=== PATIENT | female | born 1980 | race Caucasian/White ===

== ENCOUNTER 2019-04-04 04:42 | Emergency (ER) | payer SELFPAY ==
[2019-04-04] MEDS ORDERED: Albuterol/Ipratropium 3.0-0.5 MG/3 ML Neb Soln ONE (04:44)
[2019-04-04] MEDS ORDERED: methylPREDNISolone Sodium Succinate 125 MG/2 ML SDV ONE (04:44)
[2019-04-04] MEDS ORDERED: methylPREDNISolone Sodium Succinate 125 MG/2 ML SDV IVPUSH ONE (04:47)
[2019-04-04] MEDS ORDERED: Albuterol/Ipratropium 3.0-0.5 MG/3 ML Neb Soln NEB ONE (04:47)
--- NOTE | 2019-04-04 04:47 | EDM.PDOC ---
<CelinaLacho - Last Filed: 04/04/19 04:44> ED HPI GENERAL MEDICAL PROBLEM - General Stated Complaint: SHORTNESS OF BREATH- ASTHMA Time Seen by Provider: 04/04/19 04:44 - History of Present Illness INITIAL COMMENTS - FREE TEXT/NARRATIVE: HISTORY AND PHYSICAL: History of present illness: Patient 38-year-old white female presents with a concern of shortness of breath and wheezing worse this a.m. this is been unresponsive to her home nebulizer. Patient has long history of asthma she still is a smoker, patient denies fever chills nausea vomiting she states she has been hospitalized in the past but this was related to pneumonia she denies having been hospitalized in the past related to asthmatic exacerbation Review of systems: As per history of present illness and below otherwise all systems reviewed and negative. Past medical history: As per history of present illness and as reviewed below otherwise noncontributory. Surgical history: As per history of present illness and as reviewed below otherwise noncontributory. Social history: No reported history of drug or alcohol abuse. Family history: As per history of present illness and as reviewed below otherwise noncontributory. Physical exam: HEENT: Atraumatic, normocephalic, pupils reactive, negative for conjunctival pallor or scleral icterus, mucous membranes moist, throat clear, neck supple, nontender, trachea midline. Lungs: Diminished bilaterally and expiratory wheezing noted no rhonchi or crackles breath sounds equal bilaterally, chest nontender. Heart: S1S2, regular, negative for clicks, rubs, or JVD. Abdomen: Soft, nondistended, nontender. Pelvis: Stable nontender. Genitourinary: Deferred. Rectal: Deferred. Extremities: Atraumatic, negative for cords or calf pain. Neurovascular unremarkable. Neuro: Awake, alert, oriented. Nonfocal Diagnostics: Chest x-ray one view Therapeutics: Albuterol ipratropium nebulizer Solu-Medrol 125 mg IV Impression: #1 asthmatic exacerbation Definitive disposition and diagnosis as appropriate pending reevaluation and review of above. - Related Data Allergies Allergy/AdvReac Type Severity Reaction Status Date / Time No Known Allergies Allergy Verified 04/04/19 04:48 Home Meds: Home Meds Albuterol [Ventolin HFA] 1 puff INH ASDIRECTED PRN 04/04/19 [History] Albuterol [Ventolin HFA] 2 puff INH Q4HR PRN #1 inhaler 04/04/19 [Rx] Amoxicillin 500 mg PO TID #21 capsule 04/04/19 [Rx] predniSONE [Prednisone] 20 mg PO DAILY #5 tablet 04/04/19 [Rx] ED ROS GENERAL - Review of Systems Review Of Systems: ROS reveals no pertinent complaints other than HPI. ED EXAM, GENERAL - Physical Exam Exam: See Below (See dictation) Course - Vital Signs Last Recorded V/S: Last Vital Signs Temp 97.6 F 04/04/19 04:42 Pulse 86 04/04/19 04:42 Resp 18 04/04/19 04:42 BP 138/78 04/04/19 04:42 Pulse Ox 95 04/04/19 04:42 - Orders/Labs/Meds Orders: Active Orders 24 hr Category Date Time Status Chest 1V Frontal [CR] Stat Exams 04/04/19 04:45 Taken Sodium Chloride 0.9% [Saline Flush] Med 04/04/19 04:49 Active 10 ml FLUSH ASDIRECTED PRN Sodium Chloride 0.9% [Saline Flush] Med 04/04/19 04:49 Active 2.5 ml FLUSH ASDIRECTED PRN Saline Lock Insert [OM.PC] Stat Oth 04/04/19 04:49 Ordered Medication Orders Sodium Chloride (Saline Flush) 10 ml FLUSH ASDIRECTED PRN PRN Reason: Keep Vein Open Last Admin: 04/04/19 04:51 Dose: 10 ml Sodium Chloride (Saline Flush) 2.5 ml FLUSH ASDIRECTED PRN PRN Reason: Keep Vein Open Last Admin: 04/04/19 04:51 Dose: 2.5 ml Meds: Medications Generic Name Dose Route Start Last Admin Trade Name Freq PRN Reason Stop Dose Admin Sodium Chloride 10 ml 04/04/19 04:49 04/04/19 04:51 Saline Flush FLUSH 10 ml ASDIRECTED PRN Administration Keep Vein Open Sodium Chloride 2.5 ml 04/04/19 04:49 04/04/19 04:51 Saline Flush FLUSH 2.5 ml ASDIRECTED PRN Administration Keep Vein Open Discontinued Medications Generic Name Dose Route Start Last Admin Trade Name Freq PRN Reason Stop Dose Admin Albuterol 2.5 mg 04/04/19 05:19 04/04/19 05:23 Proventil Neb Soln NEB 04/04/19 05:20 2.5 mg ONETIME ONE Administration Albuterol/Ipratropium Confirm 04/04/19 04:44 04/04/19 04:51 Duoneb 3.0-0.5 Mg/3 Ml Administered 04/04/19 04:45 Not Given Dose 3 ml .ROUTE .STK-MED ONE Albuterol/Ipratropium 3 ml 04/04/19 04:47 04/04/19 04:50 Duoneb 3.0-0.5 Mg/3 Ml NEB 04/04/19 04:48 3 ml ONETIME ONE Administration Methylprednisolone Sodium Succinate Confirm 04/04/19 04:44 04/04/19 04:51 Solu-Medrol Administered 04/04/19 04:45 Not Given Dose 125 mg .ROUTE .STK-MED ONE Methylprednisolone Sodium Succinate 125 mg 04/04/19 04:47 04/04/19 04:51 Solu-Medrol IVPUSH 04/04/19 04:48 125 mg ONETIME ONE Administration Departure - Departure Disposition: Home, Self-Care 01 Clinical Impression: Acute asthmatic bronchitis - Discharge Information Prescriptions: Albuterol [Ventolin HFA] 2 puff INH Q4HR PRN #1 inhaler PRN Reason: Shortness Of Breath Amoxicillin 500 mg PO TID #21 capsule predniSONE [Prednisone] 20 mg PO DAILY #5 tablet Additional Instructions: The following information is given to patients seen in the emergency department who are being discharged to home. This information is to outline your options for follow-up care. We provide all patients seen in our emergency department with a follow-up referral. The need for follow-up, as well as the timing and circumstances, are variable depending upon the specifics of your emergency department visit. If you don't have a primary care physician on staff, we will provide you with a referral. We always advise you to contact your personal physician following an emergency department visit to inform them of the circumstance of the visit and for follow-up with them and/or the need for any referrals to a consulting specialist. The emergency department will also refer you to a specialist when appropriate. This referral assures that you have the opportunity for follow-up care with a specialist. All of these measure are taken in an effort to provide you with optimal care, which includes your follow-up. Under all circumstances we always encourage you to contact your private physician who remains a resource for coordinating your care. When calling for follow-up care, please make the office aware that this follow-up is from your recent emergency room visit. If for any reason you are refused follow-up, please contact the [facility] Emergency Department at and asked to speak to the emergency department charge nurse. Take meds as directed, follow up with your primary care physician, return to ER if symptoms worsen or change. [facility] [address] [place] [address] <Millicent Ellington - Last Filed: 04/04/19 05:43> Departure - Departure Time of Disposition: 05:43 Condition: Good - Discharge Information *PRESCRIPTION DRUG MONITORING PROGRAM REVIEWED*: No *COPY OF PRESCRIPTION DRUG MONITORING REPORT IN PATIENT DANIELLA: No
[2019-04-04] MEDS ORDERED: Sodium Chloride 0.9% 10 ML Syringe FLUSH PRN (04:49)
[2019-04-04] MEDS ORDERED: Sodium Chloride 0.9% 2.5 ML Syringe FLUSH PRN (04:49)
[2019-04-04] MEDS ORDERED: Albuterol 0.083% 2.5 MG/3 ML Neb Soln NEB ONE (05:19)
--- NOTE | 2019-04-04 05:53 | CR ---
Indication: Dyspnea Technique: Chest 1 view Comparison: None Findings/Impression: Cardiovascular and mediastinum: Heart size and vasculature are normal in caliber and appearance. Mediastinum is within normal limits. Lungs and pleural space: Lungs are clear. No sign of infiltrate or mass. No sign of pleural effusion. No pneumothorax. Bones and soft tissues: No significant findings. Dictated by Jose Cruz Ramirez MD @ 04/04/2019 5:52:10 AM Dictated by: Jose Cruz Ramirez MD @ 04/04/2019 05:52:14 (Electronically Signed)
== END 2019-04-04 05:57 | disposition home or self-care (01) ==
LOC: MW.ED 04:42
DX: J45.901 Unspecified asthma with (acute) exacerbation (principal); Z79.51 Long term (current) use of inhaled steroids
CPT/HCPCS: 71045; 96372; 99284; J2930; J7620-GY

== ENCOUNTER 2024-04-06 10:32 | Day surgery (SDC) | payer BC, MEDICAID ==
[~2024-04-06 10:32] MED LIST: Propofol 200 MG/20 ML SDV ONE; ceFAZolin 2 GM in Sodium Chloride 0.9% 50 ML IV ONE; fentaNYL 250 MCG/5 ML SDV ONE; propofoL 50 ML ONE
[2024-04-06] MEDS ORDERED: Phenylephrine HCl In 0.9% NaCl 1 MG/10 ML Syringe IVPUSH PRN (10:36)
[2024-04-06] MEDS ORDERED: Metoclopramide 10 MG/2 ML SDV IVPUSH PRN (10:36)
[2024-04-06] MEDS ORDERED: Ondansetron 4 MG/2 ML SDV IVPUSH PRN (10:36)
[2024-04-06] MEDS ORDERED: Morphine 2 MG/ML SYRINGE IVPUSH PRN (10:36)
[2024-04-06] MEDS ORDERED: HYDROmorphone 1 MG/ML Syringe IVPUSH PRN (10:36)
[2024-04-06] MEDS ORDERED: Naloxone 0.4 MG/ML SDV IVPUSH PRN (10:36)
[2024-04-06] MEDS ORDERED: Albuterol 0.083% 2.5 MG/3 ML Neb Soln NEB PRN (10:36)
[2024-04-06] MEDS: Lactated Ringers 1,000 ML IV SCH (11:08)
[2024-04-06] MEDS ORDERED: Ketamine HCL/NACL, ISO-OSM 50 MG/5 ML Syringe ONE (13:20)
[2024-04-06] MEDS ORDERED: Propofol 200 MG/20 ML SDV ONE (13:24)
[2024-04-06] MEDS ORDERED: Dexamethasone 4 MG/ML 5 ML MDV ONE (13:36)
[2024-04-06] MEDS ORDERED: Ondansetron 4 MG/2 ML SDV ONE (13:36)
[2024-04-06] MEDS ORDERED: Ketorolac 30 MG/ML SDV ONE (13:36)
[2024-04-06] MEDS ORDERED: ceFAZolin 2 GM Vial ONE (13:36)
[2024-04-06] MEDS ORDERED: HYDROmorphone 2 MG/ML Syringe ONE (13:38)
[2024-04-06] MEDS ORDERED: Bupivacaine 0.5% 30 ML SDV ONE (13:40)
[2024-04-06] MEDS: fentaNYL 50 MCG/ML SDV IVPUSH PRN (14:11)
== END 2024-04-06 15:00 | disposition home or self-care (01) ==
LOC: MW.SDS 10:32
PROVIDERS: ATTEND Orthopaedic Surgery
DX: S83.242A Other tear of medial meniscus, current injury, left knee, initial encounter (principal); J45.909 Unspecified asthma, uncomplicated; K21.9 Gastro-esophageal reflux disease without esophagitis; F41.8 Other specified anxiety disorders; E03.9 Hypothyroidism, unspecified; E66.9 Obesity, unspecified; F17.290 Nicotine dependence, other tobacco product, uncomplicated; Z79.899 Other long term (current) drug therapy; Z79.890 Hormone replacement therapy; Z91.09 Other allergy status, other than to drugs and biological substances; Z91.018 Allergy to other foods; Z68.30 Body mass index [BMI] 30.0-30.9, adult
CPT/HCPCS: 29881; J0131; J0665; J0690; J1100; J1170; J1885; J2405; J2704; J3010; J7120; 01400; J3490

== ENCOUNTER 2025-04-17 06:46 | Inpatient (IN) | payer BC ==
[2025-04-17] MEDS ORDERED: Sodium Chloride 0.9% 2.5 ML Syringe FLUSH PRN ×2 (07:03→09:59)
[2025-04-17] MEDS ORDERED: Sodium Chloride 0.9% 10 ML Syringe FLUSH PRN ×2 (07:03→09:59)
[2025-04-17] MEDS: methylPREDNISolone Sodium Succinate 125 MG/2 ML SDV IVPUSH ONE (07:24)
[2025-04-17 07:39] LABS: BASOPHILS ABSOLUTE AUTO 0.02 K/uL (0.00-0.20); BASOPHILS PERCENT AUTO 0.3 % (0.0-1.0); EOSINOPHILS ABSOLUTE AUTO 0.07 K/uL (0.00-0.45); EOSINOPHILS PERCENT AUTO 1.0 % (0.0-6.0); IMMATURE GRAN ABSOLUTE AUTO 0.05 K/uL (0.00-0.05); IMMATURE GRAN PERCENT AUTO 0.7 % (0.0-0.4); LYMPHOCYTES ABSOLUTE AUTO 1.23 K/uL (1.00-4.80); LYMPHOCYTES PERCENT AUTO 17.6 % (24.0-44.0); MEAN PLATELET VOLUME 9.3 fL (9.4-12.3); MONOCYTES ABSOLUTE AUTO 0.66 K/uL (0.00-0.80); MONOCYTES PERCENT AUTO 9.5 % (0.0-8.0); NEUTROPHILS ABSOLUTE AUTO 4.95 K/uL (1.80-7.70); NEUTROPHILS PERCENT AUTO 70.9 % (41.0-71.0); NRBC ABSOLUTE 0.00 K/uL (0.00-0.02); NRBC PERCENT 0.0 /100WBC (0.0-0.2); PLATELET COUNT,PLT 293 K/uL (150-400); RED BLOOD CELL COUNT 3.99 M/uL (4.10-5.30); WHITE BLOOD CELL COUNT,WBC 6.98 K/uL (3.9-11.3)
[2025-04-17] MEDS: cefTRIAXone 1 GM in Water For Injection, Sterile 10 ML IVPUSH ONE (07:53)
[2025-04-17 08:08] LABS: A/G RATIO 0.8 (0.9-1.6); ALANINE AMINOTRANSFERASE,ALT 46 IU/L (14-63); ASPARTATE AMNIOTRANSFERASE,AST 34 IU/L (15-37); BILIRUBIN TOTAL 0.4 mg/dL (0.2-1.0); BLOOD UREA NITROGEN,BUN 7 mg/dL (7.0-18.0); CARBON DIOXIDE,CO2 27.2 mmol/L (21.0-32.0); CHLORIDE,CL 103 mmol/L (98-107); CREATININE 0.8 mg/dL (0.6-1.0); GLUCOSE RANDOM 138 mg/dL (74-106); POTASSIUM,K 3.4 mmol/L (3.5-5.1); PROTEIN TOTAL,TP 6.8 g/dL (6.4-8.2); SODIUM,NA 143 mmol/L (136-145)
[2025-04-17 08:10] LABS: ESTIMATED GFR 93 mL/min (>60)
[2025-04-17 08:18] LABS: LACTIC ACID 1.2 mmol/L (0.4-2.0)
[2025-04-17] MEDS: Iopamidol 755 MG/ML 500 ML Multipack Bottle IVPUSH STA (09:09)
[2025-04-17] MEDS: Potassium Chloride 20 MEQ Tab.ER PO ONE (11:09)
[2025-04-17] MEDS: Pantoprazole 40 MG in Sodium Chloride 0.9% 10 ML IVPUSH SCH (11:09)
[2025-04-17] MEDS: Ondansetron 4 MG/2 ML SDV IVPUSH SCH (11:09)
[2025-04-17] MEDS ORDERED: Ondansetron 4 MG/2 ML SDV IVPUSH PRN (17:00)
[2025-04-17] MEDS: Desvenlafaxine Succinate 25 MG TAB.ER PO SCH (20:49)
[2025-04-18 05:58] LABS: BASOPHILS ABSOLUTE AUTO 0.05 K/uL (0.00-0.20); BASOPHILS PERCENT AUTO 0.6 % (0.0-1.0); EOSINOPHILS ABSOLUTE AUTO 0.10 K/uL (0.00-0.45); EOSINOPHILS PERCENT AUTO 1.1 % (0.0-6.0); IMMATURE GRAN ABSOLUTE AUTO 0.13 K/uL (0.00-0.05); IMMATURE GRAN PERCENT AUTO 1.5 % (0.0-0.4); LYMPHOCYTES ABSOLUTE AUTO 2.49 K/uL (1.00-4.80); LYMPHOCYTES PERCENT AUTO 28.6 % (24.0-44.0); MEAN PLATELET VOLUME 9.2 fL (9.4-12.3); MONOCYTES ABSOLUTE AUTO 0.83 K/uL (0.00-0.80); MONOCYTES PERCENT AUTO 9.5 % (0.0-8.0); NEUTROPHILS ABSOLUTE AUTO 5.10 K/uL (1.80-7.70); NEUTROPHILS PERCENT AUTO 58.7 % (41.0-71.0); NRBC ABSOLUTE 0.00 K/uL (0.00-0.02); NRBC PERCENT 0.0 /100WBC (0.0-0.2); PLATELET COUNT,PLT 305 K/uL (150-400); RED BLOOD CELL COUNT 3.95 M/uL (4.10-5.30); WHITE BLOOD CELL COUNT,WBC 8.70 K/uL (3.9-11.3)
[2025-04-18 06:16] LABS: BLOOD UREA NITROGEN,BUN 9.0 mg/dL (7.0-18.0); CARBON DIOXIDE,CO2 28.9 mmol/L (21.0-32.0); CHLORIDE,CL 104.0 mmol/L (98-107); CREATININE 0.8 mg/dL (0.6-1.0); EST CRCL DRUG DOSING (CG) 86.36 mL/min; GLUCOSE RANDOM 116.0 mg/dL (74-106); POTASSIUM,K 4.0 mmol/L (3.5-5.1); SODIUM,NA 139.0 mmol/L (136-145)
[2025-04-18 06:24] LABS: ESTIMATED GFR 93.0 mL/min (>60)
[2025-04-18] MEDS: Magnesium Sulfate 2 GM/50 mL 2 GM in Premix Bag 1 BAG IV ONE (08:39)
[2025-04-18] MEDS: cefTRIAXone 1 GM in Water For Injection, Sterile 10 ML IVPUSH SCH (09:43)
[2025-04-19 05:07] LABS: BORDETELLA PARAPERT IS1001 Not Detected (Not Detected)
[2025-04-19 05:57] LABS: BASOPHILS ABSOLUTE AUTO 0.03 K/uL (0.00-0.20); BASOPHILS PERCENT AUTO 0.4 % (0.0-1.0); EOSINOPHILS ABSOLUTE AUTO 0.12 K/uL (0.00-0.45); EOSINOPHILS PERCENT AUTO 1.6 % (0.0-6.0); IMMATURE GRAN ABSOLUTE AUTO 0.15 K/uL (0.00-0.05); IMMATURE GRAN PERCENT AUTO 2.0 % (0.0-0.4); LYMPHOCYTES ABSOLUTE AUTO 2.24 K/uL (1.00-4.80); LYMPHOCYTES PERCENT AUTO 29.3 % (24.0-44.0); MEAN PLATELET VOLUME 9.1 fL (9.4-12.3); MONOCYTES ABSOLUTE AUTO 0.61 K/uL (0.00-0.80); MONOCYTES PERCENT AUTO 8.0 % (0.0-8.0); NEUTROPHILS ABSOLUTE AUTO 4.49 K/uL (1.80-7.70); NEUTROPHILS PERCENT AUTO 58.7 % (41.0-71.0); NRBC ABSOLUTE 0.00 K/uL (0.00-0.02); NRBC PERCENT 0.0 /100WBC (0.0-0.2); PLATELET COUNT,PLT 309 K/uL (150-400); RED BLOOD CELL COUNT 3.80 M/uL (4.10-5.30); WHITE BLOOD CELL COUNT,WBC 7.64 K/uL (3.9-11.3)
[2025-04-19 06:17] LABS: BLOOD UREA NITROGEN,BUN 7.0 mg/dL (7.0-18.0); CARBON DIOXIDE,CO2 29.0 mmol/L (21.0-32.0); CHLORIDE,CL 105.0 mmol/L (98-107); CREATININE 0.7 mg/dL (0.6-1.0); EST CRCL DRUG DOSING (CG) 98.69 mL/min; GLUCOSE RANDOM 121.0 mg/dL (74-106); POTASSIUM,K 3.7 mmol/L (3.5-5.1); SODIUM,NA 143.0 mmol/L (136-145)
[2025-04-19 06:19] LABS: ESTIMATED GFR 109.0 mL/min (>60)
== END 2025-04-19 11:10 | disposition home or self-care (01) | DRG 139 ==
LOC: MW.ED 06:46 → MW.MS 09:25
PROVIDERS: ADMIT Family Medicine; ATTEND Family Medicine
DX: J18.8 Other pneumonia, unspecified organism (principal); J96.01 Acute respiratory failure with hypoxia; E03.9 Hypothyroidism, unspecified; J45.909 Unspecified asthma, uncomplicated; H54.7 Unspecified visual loss; K44.9 Diaphragmatic hernia without obstruction or gangrene; F41.9 Anxiety disorder, unspecified; F32.A Depression, unspecified; E66.9 Obesity, unspecified; Z68.34 Body mass index [BMI] 34.0-34.9, adult; Z79.899 Other long term (current) drug therapy; Z90.49 Acquired absence of other specified parts of digestive tract
CPT/HCPCS: 36415; 71045; 71045-26; 71275; 71275-26; 80048; 80053; 83605; 83735; 84703; 85025; 87040; 87428-QW; 87486; 87581; 87633; 93005; 93010; 94667; 96361; 96374; 96375; 99285; 99285-25; A9270-GY; J0696; J1271; J1650; J2405; J2470; J2919; J3475; J7030; Q9967